=== PATIENT | male | born 1995 | race Caucasian/White ===

== ENCOUNTER 2023-04-19 14:15 | Emergency (ER) | payer BC, OTHER ==
[2023-04-19] MEDS: Bacitracin/Neomycin/Polymyxin B Oint 0.9 GM U/D Packet ONE (15:08)
[2023-04-19] MEDS: Bacitracin/Neomycin/Polymyxin B Oint 0.9 GM U/D Packet TOP ONE (15:08)
[2023-04-19] MEDS: Diphtheria,Pertussis(Acell),Tetanus Vaccine 0.5 ML Syringe IM ONE (15:15)
[2023-04-19] MEDS: Lidocaine 1% with EPINEPHrine 1:100,000 10 ML MDV INJECT ONE (15:16)
[2023-04-19] MEDS: Lidocaine 1% with EPINEPHrine 1:100,000 10 ML MDV ONE (15:16)
== END 2023-04-19 15:15 | disposition home or self-care (01) ==
LOC: KA.ED 14:15
DX: S61.411A Laceration without foreign body of right hand, initial encounter (principal); Z23 Encounter for immunization; W26.9XXA Contact with unspecified sharp object(s), initial encounter; Y99.0 Civilian activity done for income or pay
CPT/HCPCS: 12002; 90471; 90715; 99282-25; 99283; J3490